=== PATIENT | female | born 1980 | race Caucasian/White ===

== ENCOUNTER 2016-11-30 20:19 | Emergency (ER) | payer MEDICAID ==
[~2016-11-30] VITALS: Ht 175.3 cm; Wt 79.2 kg
[~2016-11-30 20:19] MED LIST: CIPRO500 MG OR; NAPROSYN500 MG PO; PYRIDIUM200 MG OR; VEETIDS500 MG OR; WELLBUTRIN150 M1 PO; XANAX0.25 MG PO
[2016-11-30 21:29] LABS: HEMATOCRIT 43.1 % (37.0-47.0); HEMOGLOBIN 14.4 g/dl (12.0-16.0); IMMATURE GRANULOCYTES 0.4 % (0.0-1.0); MEAN CORPUSCULAR HGB 29.8 pG CALC (26.0-32.0); MEAN CORPUSCULAR HGB CONC 33.4 g/L CALC (32.0-36.0); NEUT# 10.57 thou/uL (2.00-7.15); RED BLOOD COUNT 4.84 mill/uL (4.20-5.60); RED CELL DISTRI WIDTH 12.6 % (11.5-15.5)
[2016-11-30 21:30] LABS: URINE BILIRUBIN - DIPSTICK NEGATIVE (NEGATIVE); URINE BLOOD DIPSTICK MODERATE (NEGATIVE); URINE COLOR YELLOW; URINE GLUCOSE - DIPSTICK NEGATIVE (NEGATIVE); URINE KETONE NEGATIVE (NEGATIVE); URINE LEUK ESTERASE NEGATIVE (NEGATIVE); URINE NITRITE - DIPSTICK NEGATIVE (Negative); URINE PROTEIN - DIPSTICK NEGATIVE (NEG-TRACE); URINE SPECIFIC GRAVITY 1.025; URINE UROBILINOGEN - DIPSTICK 0.2 E.U./dL (0.2)
[2016-11-30 21:33] LABS: URINE CLARITY HAZY
[2016-11-30 21:39] LABS: ALKALINE PHOSPHATASE 67 u/l (38-126); AMYLASE 56 u/l (30-110); ANION GAP 20 (6-22 (CALC)); BILIRUBIN, TOTAL 0.5 mg/dL (0.0-1.4); BUN 7 mg/dL (7-17); BUN/CREATININE RATIO 10 (12-20 (CALC)); CALCIUM 10.2 mg/dL (8.4-10.2); CARBON DIOXIDE 24 mmol/l (22-30); CHLORIDE 101 mmol/l (95-108); CREATININE 0.7 mg/dL (0.5-1.0); GFR > 60 ML/MIN (>=60 (CALC)); GFR FOR AFR.AMER. > 60 ML/MIN (>=60 (CALC)); GLUCOSE 100 mg/dL (65-105); LIPASE 57 u/l (23-300); POTASSIUM 3.9 mmol/l (3.5-5.1); SGOT/AST 23 u/l (14-36); SGPT/ALT 32 u/l (9-52); SODIUM 141 mmol/l (137-146)
[2016-11-30 21:39] LABS: URINE BACTERIA RARE hpf; URINE SQUAMOUS EPITHELIAL CELL FEW EPI/hpf (0-FEW); URINE WBC 0-2 WBC/hpf (0-5)
[2016-11-30 23:45] VITALS: BP 108/53
== END 2016-12-01 00:09 | disposition home or self-care (01) | DRG 392 ==
LOC: ED 20:19
PROVIDERS: Emergency Medicine
DX: R10.32 Left lower quadrant pain (principal); F32.9 Major depressive disorder, single episode, unspecified; Z87.440 Personal history of urinary (tract) infections
CPT/HCPCS: Q9967

== ENCOUNTER 2017-01-11 06:48 | Day surgery (SDC) | payer MEDICAID ==
[~2017-01-11] VITALS: Ht 170.2 cm; Wt 79.8 kg
[~2017-01-11 06:48] MED LIST changes: +CELEXA20 MG PO
[2017-01-11] MEDS ORDERED: LORTAB 7.5-3251 TAB PO (09:52)
[2017-01-11 11:00] VITALS: BP 93/53
== END 2017-01-11 11:30 | disposition home or self-care (01) | DRG 745 ==
LOC: ORM 06:48
PROVIDERS: ATTEND Obstetrics & Gynecology
PROC: 0WJJ4ZZ Inspection of Pelvic Cavity, Percutaneous Endoscopic Approach (ICD-10-PCS; principal; 2017-01-11)
DX: N94.10 Unspecified dyspareunia (principal); F17.210 Nicotine dependence, cigarettes, uncomplicated; R10.30 Lower abdominal pain, unspecified; R10.2 Pelvic and perineal pain; K59.00 Constipation, unspecified; N80.8 Other endometriosis
CPT/HCPCS: J2710

== ENCOUNTER 2017-05-20 22:14 | Emergency (ER) | payer MEDICAID ==
[~2017-05-20] VITALS: Ht 170.2 cm; Wt 80.0 kg
[~2017-05-20 22:14] MED LIST changes: +LORTAB 7.5-3251 TAB PO
[2017-05-20 23:23] LABS: HEMATOCRIT 39.1 % (37.0-47.0); HEMOGLOBIN 12.9 g/dl (12.0-16.0); IMMATURE GRANULOCYTES 0.4 % (0.0-1.0); MEAN CELL VOLUME 89.9 fL CALC (80.0-100.0); MEAN CORPUSCULAR HGB 29.7 pG CALC (26.0-32.0); NEUT# 7.43 thou/uL (2.00-7.15); RED BLOOD COUNT 4.35 mill/uL (4.20-5.60); RED CELL DISTRI WIDTH 12.5 % (11.5-15.5); URINE BILIRUBIN - DIPSTICK NEGATIVE (NEGATIVE); URINE BLOOD DIPSTICK SMALL (NEGATIVE); URINE CLARITY SL CLOUDY; URINE COLOR YELLOW; URINE GLUCOSE - DIPSTICK NEGATIVE (NEGATIVE); URINE KETONE NEGATIVE (NEGATIVE); URINE LEUK ESTERASE NEGATIVE (NEGATIVE); URINE NITRITE - DIPSTICK NEGATIVE (Negative); URINE PROTEIN - DIPSTICK NEGATIVE (NEG-TRACE); URINE UROBILINOGEN - DIPSTICK 0.2 E.U./dL (0.2)
[2017-05-20 23:27] LABS: URINE BACTERIA FEW hpf; URINE MUCUS FEW hpf (NONE-FEW); URINE SQUAMOUS EPITHELIAL CELL FEW EPI/hpf (0-FEW); URINE WBC 0-2 WBC/hpf (0-5)
[2017-05-20 23:31] LABS: ALBUMIN 4.1 g/dL (3.2-5.0); ALKALINE PHOSPHATASE 70 u/l (38-126); AMYLASE 42 u/l (30-110); ANION GAP 14 (6-22 (CALC)); BILIRUBIN, TOTAL 0.3 mg/dL (0.0-1.4); BUN 9 mg/dL (7-17); BUN/CREATININE RATIO 12 (12-20 (CALC)); CALCIUM 10.1 mg/dL (8.4-10.2); CARBON DIOXIDE 25 mmol/l (22-30); CHLORIDE 105 mmol/l (95-108); CREATININE 0.8 mg/dL (0.5-1.0); GFR > 60 ML/MIN (>=60 (CALC)); GFR FOR AFR.AMER. > 60 ML/MIN (>=60 (CALC)); GLUCOSE 89 mg/dL (65-105); LIPASE 58 u/l (23-300); POTASSIUM 4.1 mmol/l (3.5-5.1); SGOT/AST 21 u/l (14-36); SGPT/ALT 23 u/l (9-52); SODIUM 140 mmol/l (137-146); TOTAL PROTEIN 6.6 g/dL (6.3-8.2)
[2017-05-21] MEDS ORDERED: NAPROSYN500 MG PO (03:55)
[2017-05-21] MEDS ORDERED: CIPROFLOXACN500 MG PO (03:55)
[2017-05-21 04:06] VITALS: BP 110/61
== END 2017-05-21 04:06 | disposition home or self-care (01) | DRG 392 ==
LOC: ED 22:14
PROVIDERS: Emergency Medicine
DX: R10.32 Left lower quadrant pain (principal); F17.210 Nicotine dependence, cigarettes, uncomplicated

== ENCOUNTER 2018-07-02 18:33 | Emergency (ER) | payer MEDICAID ==
[~2018-07-02] VITALS: Ht 170.2 cm; Wt 84.0 kg
[~2018-07-02 18:33] MED LIST changes: +CIPROFLOXACN500 MG PO
[2018-07-02] MEDS ORDERED: ATORVASTATIN CA20 MG PO (19:10)
[2018-07-02] MEDS ORDERED: XANAX0.5 MG PO (19:11)
[2018-07-02 19:45] VITALS: BP 109/77
== END 2018-07-02 19:45 | disposition home or self-care (01) ==
LOC: ED 18:33
DX: J02.9 Acute pharyngitis, unspecified (principal); E78.5 Hyperlipidemia, unspecified; Z86.73 Personal history of transient ischemic attack (TIA), and cerebral infarction without residual deficits; F17.210 Nicotine dependence, cigarettes, uncomplicated; R05 Cough

== ENCOUNTER 2018-09-15 23:45 | Emergency (ER) | payer MEDICAID ==
[~2018-09-15] VITALS: Ht 170.2 cm; Wt 83.0 kg
[~2018-09-15 23:45] MED LIST changes: +ATORVASTATIN CA20 MG PO; +XANAX0.5 MG PO
[2018-09-16] MEDS ORDERED: XANAX0.5 MG PO (02:02)
[2018-09-16 03:03] VITALS: BP 132/75
== END 2018-09-16 02:18 | disposition home or self-care (01) ==
LOC: ED 23:45
DX: F41.0 Panic disorder [episodic paroxysmal anxiety] (principal); F17.210 Nicotine dependence, cigarettes, uncomplicated
CPT/HCPCS: J2060

== ENCOUNTER 2019-01-01 20:07 | Emergency (ER) | payer MEDICAID ==
[~2019-01-01] VITALS: Ht 170.2 cm; Wt 84.8 kg
[2019-01-01] MEDS ORDERED: AMOXICILLIN500 MG PO (21:22)
[2019-01-01 21:30] VITALS: BP 108/71
== END 2019-01-01 21:30 | disposition home or self-care (01) ==
LOC: ED 20:07
DX: J02.9 Acute pharyngitis, unspecified (principal); F17.200 Nicotine dependence, unspecified, uncomplicated; R11.0 Nausea

== ENCOUNTER 2019-02-26 22:44 | Emergency (ER) | payer MEDICAID ==
[~2019-02-26] VITALS: Ht 170.2 cm; Wt 84.6 kg
[~2019-02-26 22:44] MED LIST changes: +AMOXICILLIN500 MG PO
[2019-02-26 23:47] LABS: HEMATOCRIT 40.3 % (37.0-47.0); HEMOGLOBIN 13.1 g/dl (12.0-16.0); IMMATURE GRANULOCYTES 0.4 % (0.0-5.0); MEAN CORPUSCULAR HGB 28.9 pG CALC (26.0-32.0); MEAN CORPUSCULAR HGB CONC 32.5 g/L CALC (32.0-36.0); NEUT# 8.86 thou/uL (2.00-7.15); RED BLOOD COUNT 4.53 mill/uL (4.20-5.60); RED CELL DISTRI WIDTH 13.2 % (11.5-15.5)
[2019-02-27] MEDS ORDERED: AMOXICILLIN500 MG PO (00:38)
[2019-02-27 01:04] VITALS: BP 132/72
== END 2019-02-27 01:04 | disposition home or self-care (01) ==
LOC: ED 22:44
PROVIDERS: Family Medicine
DX: J01.90 Acute sinusitis, unspecified (principal); F17.200 Nicotine dependence, unspecified, uncomplicated; Z86.73 Personal history of transient ischemic attack (TIA), and cerebral infarction without residual deficits

== ENCOUNTER 2019-06-29 | Emergency (ER) | payer MEDICAID ==
[2019-06-29 14:22] LABS: HEMATOCRIT 41.4 % (37.0-47.0); HEMOGLOBIN 13.3 g/dl (12.0-16.0); IMMATURE GRANULOCYTES 0.3 % (0.0-5.0); MEAN CELL VOLUME 87.3 fL CALC (80.0-100.0); MEAN CORPUSCULAR HGB 28.1 pG CALC (26.0-32.0); MEAN CORPUSCULAR HGB CONC 32.1 g/L CALC (32.0-36.0); NEUT# 7.12 thou/uL (2.00-7.15); RED BLOOD COUNT 4.74 mill/uL (4.20-5.60); RED CELL DISTRI WIDTH 13.6 % (11.5-15.5)
[2019-06-29 14:34] LABS: URINE BILIRUBIN - DIPSTICK NEGATIVE (NEGATIVE); URINE BLOOD DIPSTICK SMALL (NEGATIVE); URINE COLOR YELLOW; URINE GLUCOSE - DIPSTICK NEGATIVE (NEGATIVE); URINE KETONE NEGATIVE (NEGATIVE); URINE LEUK ESTERASE NEGATIVE (NEGATIVE); URINE NITRITE - DIPSTICK NEGATIVE (Negative); URINE PROTEIN - DIPSTICK NEGATIVE (NEG-TRACE); URINE SPECIFIC GRAVITY 1.025; URINE UROBILINOGEN - DIPSTICK 0.2 E.U./dL (0.2)
[2019-06-29 14:48] LABS: ALBUMIN 4.6 g/dL (3.2-5.0); ALKALINE PHOSPHATASE 60 u/l (38-126); ANION GAP 13 (6-22 (CALC)); BILIRUBIN, TOTAL 0.3 mg/dL (0.0-1.4); BUN 12 mg/dL (7-17); BUN/CREATININE RATIO 17 (12-20 (CALC)); CARBON DIOXIDE 21 mmol/l (22-30); CHLORIDE 107 mmol/l (95-108); CREATININE 0.7 mg/dL (0.5-1.0); GFR > 60 ML/MIN (>=60 (CALC)); GFR FOR AFR.AMER. > 60 ML/MIN (>=60 (CALC)); LIPASE 67 u/l (23-300); POTASSIUM 4.3 mmol/l (3.5-5.1); SGOT/AST 17 u/l (14-36); SODIUM 137 mmol/l (137-146); TOTAL PROTEIN 7.6 g/dL (6.3-8.2)
[2019-06-29 14:50] LABS: URINE SQUAMOUS EPITHELIAL CELL FEW EPI/hpf (0-FEW)
[2019-09-28] MEDS ORDERED: DICYCLOMINE10 MG PO (07:23)
[2019-09-28] MEDS ORDERED: OMEPRAZOLE DR40 MG PO (07:24)
[2019-09-28] MEDS ORDERED: LINZESS145 MCG PO (07:24)
[2020-02-06] MEDS ORDERED: CYCLOBENZAPRINE5 MG PO (11:06)
== END 2019-06-29 16:40 | disposition home or self-care (01) ==
DX: N83.202 Unspecified ovarian cyst, left side (principal); F17.210 Nicotine dependence, cigarettes, uncomplicated
CPT/HCPCS: Q9967

== ENCOUNTER 2019-12-29 20:48 | Emergency (ER) | payer MEDICAID ==
[~2019-12-29] VITALS: Ht 170.2 cm; Wt 84.1 kg
[~2019-12-29 20:48] MED LIST changes: +DICYCLOMINE10 MG PO; +LINZESS145 MCG PO; +OMEPRAZOLE DR40 MG PO
[2019-12-29 21:39] LABS: URINE BILIRUBIN - DIPSTICK NEGATIVE (NEGATIVE); URINE BLOOD DIPSTICK MODERATE (NEGATIVE); URINE COLOR YELLOW; URINE GLUCOSE - DIPSTICK NEGATIVE (NEGATIVE); URINE KETONE NEGATIVE (NEGATIVE); URINE LEUK ESTERASE NEGATIVE (NEGATIVE); URINE NITRITE - DIPSTICK NEGATIVE (Negative); URINE PROTEIN - DIPSTICK NEGATIVE (NEG-TRACE); URINE UROBILINOGEN - DIPSTICK 0.2 E.U./dL (0.2)
[2019-12-29 21:56] LABS: URINE BACTERIA FEW hpf; URINE SQUAMOUS EPITHELIAL CELL FEW EPI/hpf (0-FEW); URINE WBC 0-2 WBC/hpf (0-5)
[2019-12-29] MEDS ORDERED: VOLTAREN - GENE75 MG PO (23:03)
[2019-12-29] MEDS ORDERED: FLEXERIL5 M1 PO (23:03)
[2019-12-29 23:20] VITALS: BP 124/77
[2020-02-06] MEDS ORDERED: CYCLOBENZAPRINE5 MG PO (11:06)
== END 2019-12-29 23:25 | disposition home or self-care (01) ==
LOC: ED 20:48
PROVIDERS: Family Medicine
DX: S39.012A Strain of muscle, fascia and tendon of lower back, initial encounter (principal); G57.11 Meralgia paresthetica, right lower limb; F17.210 Nicotine dependence, cigarettes, uncomplicated; X50.0XXA Overexertion from strenuous movement or load, initial encounter; Y93.42 Activity, yoga; Z86.73 Personal history of transient ischemic attack (TIA), and cerebral infarction without residual deficits

== ENCOUNTER 2020-04-03 09:31 | Day surgery (SDC) | payer MEDICAID ==
[~2020-04-03 09:31] MED LIST changes: +CYCLOBENZAPRINE5 MG PO; +FAMOTIDINE20 M1 PO; +FLEXERIL5 M1 PO; +VOLTAREN - GENE75 MG PO
[2020-04-03 13:24] VITALS: BP 103/56
== END 2020-04-03 13:37 | disposition home or self-care (01) ==
LOC: ENDO 09:31
PROVIDERS: ATTEND Surgery
DX: Z12.11 Encounter for screening for malignant neoplasm of colon (principal); K63.5 Polyp of colon; K29.80 Duodenitis without bleeding; K29.70 Gastritis, unspecified, without bleeding; K44.9 Diaphragmatic hernia without obstruction or gangrene; E78.5 Hyperlipidemia, unspecified; F17.210 Nicotine dependence, cigarettes, uncomplicated; K21.9 Gastro-esophageal reflux disease without esophagitis; Z86.010 Personal history of colon polyps; Z86.73 Personal history of transient ischemic attack (TIA), and cerebral infarction without residual deficits; Z20.828 Contact with and (suspected) exposure to other viral communicable diseases

== ENCOUNTER 2020-09-12 15:50 | Emergency (ER) | payer MEDICAID ==
[2020-09-12 16:26] LABS: HEMATOCRIT 42.4 % (37.0-47.0); HEMOGLOBIN 13.7 g/dl (12.0-16.0); IMMATURE GRANULOCYTES 0.3 % (0.0-5.0); MEAN CELL VOLUME 88.5 fL CALC (80.0-100.0); MEAN CORPUSCULAR HGB 28.6 pG CALC (26.0-32.0); MEAN CORPUSCULAR HGB CONC 32.3 g/dL CAL (32.0-36.0); NEUT# 6.53 thou/uL (2.00-7.15); RED BLOOD COUNT 4.79 mill/uL (4.20-5.60); RED CELL DISTRI WIDTH 13.6 % (11.5-15.5); URINE BILIRUBIN - DIPSTICK NEGATIVE (NEGATIVE); URINE BLOOD DIPSTICK MODERATE (NEGATIVE); URINE COLOR YELLOW; URINE GLUCOSE - DIPSTICK NEGATIVE (NEGATIVE); URINE KETONE NEGATIVE (NEGATIVE); URINE LEUK ESTERASE TRACE (NEGATIVE); URINE PROTEIN - DIPSTICK NEGATIVE (NEG-TRACE); URINE UROBILINOGEN - DIPSTICK 0.2 E.U./dL (0.2)
[2020-09-12] MEDS ORDERED: DICYCLOMINE10 MG PO (16:26)
[2020-09-12 16:27] LABS: URINE NITRITE - DIPSTICK NEGATIVE (Negative)
[2020-09-12 16:37] LABS: URINE WBC 0-2 WBC/hpf (0-5)
[2020-09-12 16:42] LABS: ALBUMIN 4.3 g/dL (3.2-5.0); ALKALINE PHOSPHATASE 63 u/l (38-126); AMYLASE 57 u/l (30-110); ANION GAP 10 (6-22 (CALC)); BILIRUBIN, TOTAL 0.6 mg/dL (0.0-1.4); BUN 11 mg/dL (7-17); BUN/CREATININE RATIO 14 (12-20 (CALC)); CARBON DIOXIDE 25 mmol/l (22-30); CHLORIDE 106 mmol/l (95-108); CREATININE 0.8 mg/dL (0.5-1.0); GFR > 60 ML/MIN (>=60 (CALC)); GFR FOR AFR.AMER. > 60 ML/MIN (>=60 (CALC)); LIPASE 53 u/l (23-300); POTASSIUM 4.4 mmol/l (3.5-5.1); SGOT/AST 19 u/l (14-36); SODIUM 136 mmol/l (137-146); TOTAL PROTEIN 7.2 g/dL (6.3-8.2)
[2020-09-12] MEDS ORDERED: NAPROXEN DR500 MG PO (17:17)
[2020-09-12] MEDS ORDERED: ZOFRAN4 MG/TAB PO (17:17)
[2020-09-12 17:21] VITALS: BP 98/60
== END 2020-09-12 17:31 | disposition home or self-care (01) ==
LOC: ED 15:50
DX: R10.32 Left lower quadrant pain (principal); R31.29 Other microscopic hematuria; K58.9 Irritable bowel syndrome, unspecified; E78.5 Hyperlipidemia, unspecified; F17.200 Nicotine dependence, unspecified, uncomplicated; Z87.442 Personal history of urinary calculi; Z86.73 Personal history of transient ischemic attack (TIA), and cerebral infarction without residual deficits

== ENCOUNTER 2020-12-30 22:07 | Emergency (ER) | payer MEDICAID ==
[~2020-12-30] VITALS: Ht 172.7 cm; Wt 79.0 kg
[~2020-12-30 22:07] MED LIST changes: +NAPROXEN DR500 MG PO; +ZOFRAN4 MG/TAB PO
[2020-12-31] MEDS ORDERED: ZPAK PO (02:16)
[2020-12-31 02:52] VITALS: BP 111/56
== END 2020-12-31 02:52 | disposition home or self-care (01) ==
LOC: ED 22:07
DX: U07.1 COVID-19 (principal); E78.5 Hyperlipidemia, unspecified; F17.200 Nicotine dependence, unspecified, uncomplicated; Z86.73 Personal history of transient ischemic attack (TIA), and cerebral infarction without residual deficits

== ENCOUNTER 2021-04-19 12:44 | Emergency (ER) | payer MEDICAID ==
[~2021-04-19] VITALS: Ht 172.7 cm; Wt 80.5 kg
[~2021-04-19 12:44] MED LIST changes: +ZPAK PO
[2021-04-19 13:20] LABS: GFR > 60 ML/MIN (>=60 (CALC)); GFR FOR AFR.AMER. > 60 ML/MIN (>=60 (CALC))
[2021-04-19 13:22] LABS: HEMATOCRIT 42.9 % (37.0-47.0); IMMATURE GRANULOCYTES 0.2 % (0.0-5.0); MEAN CELL VOLUME 89.6 fL CALC (80.0-100.0); MEAN CORPUSCULAR HGB 29.2 pG CALC (26.0-32.0); MEAN CORPUSCULAR HGB CONC 32.6 g/dL CAL (32.0-36.0); NEUT# 9.94 thou/uL (2.00-7.15); RED BLOOD COUNT 4.79 mill/uL (4.20-5.60); RED CELL DISTRI WIDTH 13.2 % (11.5-15.5)
[2021-04-19 13:35] LABS: PROTHROMBIN TIME 10.4 SECONDS (9.0-12.5)
[2021-04-19 13:37] LABS: ALBUMIN 4.5 g/dL (3.2-5.0); ALKALINE PHOSPHATASE 73 u/l (38-126); ANION GAP 18 (6-22 (CALC)); BILIRUBIN, TOTAL 0.6 mg/dL (0.0-1.4); BUN 12 mg/dL (7-17); BUN/CREATININE RATIO 15 (12-20 (CALC)); CARBON DIOXIDE 25 mmol/l (22-30); CHLORIDE 98 mmol/l (95-108); CREATININE 0.8 mg/dL (0.5-1.0); GFR > 60 ML/MIN (>=60 (CALC)); GFR FOR AFR.AMER. > 60 ML/MIN (>=60 (CALC)); POTASSIUM 3.9 mmol/l (3.5-5.1); SGOT/AST 24 u/l (14-36); SODIUM 137 mmol/l (137-146); TOTAL PROTEIN 8.1 g/dL (6.3-8.2)
[2021-04-19] MEDS ORDERED: ASPIRIN81 MG PO (13:42)
[2021-04-19 13:58] LABS: URINE BILIRUBIN - DIPSTICK NEGATIVE (NEGATIVE); URINE BLOOD DIPSTICK SMALL (NEGATIVE); URINE COLOR YELLOW; URINE GLUCOSE - DIPSTICK NEGATIVE (NEGATIVE); URINE KETONE NEGATIVE (NEGATIVE); URINE PROTEIN - DIPSTICK NEGATIVE (NEG-TRACE); URINE SPECIFIC GRAVITY <=1.005; URINE UROBILINOGEN - DIPSTICK 0.2 E.U./dL (0.2)
[2021-04-19 14:00] LABS: URINE LEUK ESTERASE SMALL (NEGATIVE); URINE NITRITE - DIPSTICK NEGATIVE (Negative)
[2021-04-19 14:09] LABS: URINE SQUAMOUS EPITHELIAL CELL FEW EPI/hpf (0-FEW)
[2021-04-19] MEDS ORDERED: VISTARIL 50MG C50 M1 PO (15:25)
[2021-04-19 15:45] VITALS: BP 95/60
== END 2021-04-19 15:45 | disposition left against medical advice (07) ==
LOC: ED 12:44 → ED-I 14:28 → ED 15:45
PROVIDERS: Family Medicine
DX: I63.9 Cerebral infarction, unspecified (principal); G81.94 Hemiplegia, unspecified affecting left nondominant side; R29.702 NIHSS score 2; F41.9 Anxiety disorder, unspecified; E78.5 Hyperlipidemia, unspecified; F17.200 Nicotine dependence, unspecified, uncomplicated; Z86.73 Personal history of transient ischemic attack (TIA), and cerebral infarction without residual deficits; Z91.19 Patient's noncompliance with other medical treatment and regimen
CPT/HCPCS: Q9967